=== PATIENT | female | born 1970 | race Hispanic/Latino ===

== ENCOUNTER 2019-04-01 04:44 | Observation (INO) | payer BC ==
[2019-04-01 05:36] LABS: Bilirubin Negative (Negative); Blood, Urine Negative (Negative); Clarity Clear (Clear); Glucose, Urine (Dipstick) Normal (Negative); Leukocyte Negative Leu/uL (Negative); Nitrite Negative (Negative); Protein, Urine (Dipstick) Negative (Neg-Trace); Urobilinogen Normal mg/dL (Less than 2)
[2019-04-01] MEDS ORDERED: Ondansetron PF 4 MG/2 ML Vial ONE ×2 (05:51→11:52)
[2019-04-01 06:50] LABS: Troponin I 2.405 ng/mL (< 0.028)
[2019-04-01] MEDS ORDERED: Acetaminophen 325 MG TAB PO PRN (09:11)
[2019-04-01] MEDS ORDERED: Guaifenesin DM 100-10/5 ML UDCUP PO PRN (09:11)
[2019-04-01] MEDS ORDERED: Morphine 2 MG/ML SYRINGE SLOW IVP PRN (09:11)
[2019-04-01] MEDS ORDERED: Aspirin Chewable 81 MG TAB PO SCH (09:15)
[2019-04-01] MEDS ORDERED: Enoxaparin Sodium 40 MG/0.4 ML SYRINGE SC SCH (09:15)
[2019-04-01] MEDS ORDERED: Nitroglycerin 2% Ointment 1 INCH/1 GM Packet ONE (09:50)
[2019-04-01 09:53] LABS: #Eosinphils 0.3 thou/uL (0.0-0.7); #Lymphocytes 2.2 thou/uL (1.20-3.40); #Monocytes 0.4 thou/uL (0.11-0.59); #Neutrophils 3.9 thou/uL (1.40-6.50); %Basophils 0.7 % (0.0-1.0); %Eosinophils 4.7 % (0.0-10.0); %Lymphocytes 31.8 % (21.0-51.0); %Monocytes 5.9 % (0.0-10.0); Hemoglobin 11.6 g/dL (12.0-16.0); Mean Corpuscular Hemoglobin 31.2 pg (27.0-31.0); Mean Corpuscular Volume 91.8 fL (78.0-98.0); Mean Platelet Volume 6.8 fL (7.4-10.4); Platelet Count 249 thou/uL (130-400); RBC Distribution Width 12.3 % (11.5-14.5); Red Blood Cell (RBC) Count 3.72 mill/uL (4.20-5.40); White Blood Cell (WBC) Count 6.9 thou/uL (4.8-10.8)
[2019-04-01] MEDS ORDERED: Nitroglycerin 2% Ointment 1 INCH/1 GM Packet TOP SCH (10:00)
[2019-04-01] MEDS ORDERED: Iopamidol 370 76% 100 ML VIAL ONE ×2 (10:03→10:17)
[2019-04-01] MEDS ORDERED: Enoxaparin Sodium 60 MG/0.6 ML SYRINGE SC SCH ×2 (10:15→21:00)
[2019-04-01 10:18] LABS: ALT (SGPT) 14 U/L (8-55); AST (SGOT) 20 U/L (5-34); Albumin 3.4 g/dL (3.5-5.0); Alkaline Phosphatase 66 U/L (40-110); Anion Gap 7 mmol/L (10-20); BUN (Urea Nitrogen) 7 mg/dL (7.0-18.7); Bilirubin, Total 0.2 mg/dL (0.2-1.2); Calc. Creatinine Clearance 0 mL/min (70-130); Calcium 7.8 mg/dL (7.8-10.44); Carbon Dioxide 24 mmol/L (22-29); Chloride 112 mmol/L (98-107); Estimated GFR-MDRD 81; Globulin 2.4 g/dL (2.4-3.5); Glucose 94 mg/dL (70-105); Protein, Total 5.8 g/dL (6.0-8.3); Sodium 139 mmol/L (136-145)
--- NOTE | 2019-04-01 11:36 | CON ---
DATE OF CONSULTATION: 04/01/2019 REASON FOR CONSULTATION: Non-STEMI. HISTORY OF PRESENT ILLNESS: Ms. Hsieh is a pleasant 48-year-old female, who comes to the hospital for chest pain. She started having chest pain at midnight yesterday. It did not go away. So she presented to the ER at about 4:00 a.m. She was evaluated and found to have elevated troponins. Cardiology has been consulted for this. On my evaluation, Mrs. Hsieh continues to have chest pain. She states last night it was about 10/10, currently it is more about 4 to 5 out of 10. She denies any shortness of breath. No syncope or presyncope. PAST MEDICAL HISTORY: Bipolar disorder. PAST SURGICAL HISTORY: 1. Cholecystectomy. 2. Hysterectomy. SOCIAL HISTORY: Drinks socially once a month. No drug use. No tobacco use. 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 ALLERGIES: 1. ANAPROX. 2. PARAFON FORTE. OUTPATIENT MEDICATIONS: 1. Lamotrigine. 2. [place] 300 mg. 3. Oxcarbazepine. 4. Celebrex. 5. Gabapentin. 6. Levothyroxine 100 mcg a day. 7. Trazodone 100 mg once a day. 8. Tylenol with Codeine. 9. Vitamin D. REVIEW OF SYSTEMS: A 12-point review of systems was done and was all negative unless stated in the history of present illness. PHYSICAL EXAMINATION: VITAL SIGNS: Temperature 97.2, pulse 86, respiratory rate 18, saturating 100% on room air, blood pressure 98/57. GENERAL: Awake, alert, oriented x3. No distress. HEENT: Normocephalic, atraumatic. NECK: Supple. LUNGS: Clear. CARDIOVASCULAR: S1 and S2. No S3 or S4. No murmurs. ABDOMEN: Soft, positive bowel sounds. EXTREMITIES: No edema. SKIN: Warm and dry. LABORATORY DATA: Laboratory work was reviewed. She has a white count of 11, hemoglobin of 34, platelet count of 249. Chemistries were unremarkable. Troponin initially at 2.4. UA was negative. EKG was reviewed. ASSESSMENT AND PLAN: 1. Non-ST elevation myocardial infarction. She has ongoing chest pain and rising troponin. We will plan on taking her to the catheterization lab emergently for further evaluation as she has ongoing chest pain. We spoke at length with risks and benefits of the procedure. Risks included, but not limited to stroke, VT, , bleeding, need for blood transfusion, limb loss, organ loss. She understands and verbalized understanding of this and agrees to proceed. 2. Drug-eluting stents if needed. Right groin access. 3. Further recommendations per results of coronary angiogram. Job ID: [id number]
[2019-04-01] MEDS ORDERED: Sodium Chloride 0.9% 200 ML IV PRN (11:53)
[2019-04-01] MEDS ORDERED: Fentanyl 100 MCG/2 ML VIAL ONE (11:58)
[2019-04-01] MEDS ORDERED: Midazolam HCl 2 mg/2 ml Vial ONE (11:58)
[2019-04-01 13:19] VITALS: BMI 31.9
[2019-04-01] MEDS ORDERED: FLU VACC QS2019-20(6MOS UP)/PF 60 MCG/0.5 ML SYRINGE IM ONE (13:45)
[2019-04-01] MEDS ORDERED: Lorazepam 2 MG/ML VIAL SLOW IVP SCH (14:45)
--- NOTE | 2019-04-01 16:11 | CT ---
EXAM: CTA of the chest HISTORY: Shortness of breath COMPARISON: None TECHNIQUE: Multiple contiguous axial images were obtained a CTA of the chest with contrast per pulmon maye embolism protocol. 3-D oblique MIP reformats and direct coronal reformats were performed. FINDINGS: HEART: Normal in size without focal cardiac abnormality. PULMONARY ARTERIES: Normal in caliber without filling defects to suggest pulmonary emboli. MEDIASTINUM: No hilar or mediastinal lymphadenopathy. LUNGS: No focal infiltrates or masses. Bilateral dependent atelectasis. PLEURAL SPACE: No pleural effusion or pneumothorax. CHEST WALL SOFT TISSUES: Unremarkable VISUALIZED OSSEOUS STRUCTURES: Unremarkable VISUALIZED SUBDIAPHRAGMATIC STRUCTURES: Unremarkable. The patient is status post cholecystectomy. IMPRESSION: No evidence of pulmonary thromboembolism
[2019-04-01] MEDS: Sodium Chloride 0.9% 1,000 ML IV SCH ×2 (17:19→23:25)
--- NOTE | 2019-04-01 18:00 | HP ---
REASON FOR ADMISSION: Non STEMI. HISTORY OF PRESENT ILLNESS: The patient gives history of waking up at 12:30 in the mid night with epigastric pain. This was radiating into retrosternal area. She initially thought it was gas and tried to vomit. She vomited 3 times. The pain got worse. She went to bed and thought it might get better. Finally, as the pain got worse with chest pain going up to 6/10 in intensity, the patient went to [facility]. From there, she was transferred here. Currently, the chest pain is 6/10 in intensity. It is in the retrosternal area still. The patient has dry cough, but no expectoration. No fever. No complaints of palpitation, PND, or orthopnea. PAST MEDICAL AND SURGICAL HISTORY: History of bipolar disorder, hypothyroidism, cervical radiculopathy on the left side and sees and for the same, cholecystectomy, and hysterectomy. CURRENT MEDICATIONS: The patient is on: 1. Lamotrigine 100 mg p.o. daily. 2. [place] 300 mg p.o. daily. 3. Celebrex 200 mg twice daily. 4. Gabapentin 100 mg twice daily. 5. Trazodone 100 mg p.o. at bedtime. ALLERGIES: ALLERGIC TO ANAPROX AND PARAFON FORTE. PERSONAL HISTORY: Does not abuse alcohol or drugs. No history of smoking. FAMILY HISTORY: Mother has had history of heart failure, diabetes, and AICD. Father has history of coronary artery disease. CODE STATUS: Full. Power of registered art therapist is her . REVIEW OF SYSTEMS: CONSTITUTIONAL: Negative for weight loss or gain, ability to conduct usual activities. SKIN: Negative for rash, itching. EYES: Negative for double vision, pain. ENT/MOUTH: Negative for nose bleeding, neck stiffness, pain, tenderness. CARDIOVASCULAR: Negative for palpitations, dyspnea on exertion, orthopnea. RESPIRATORY: Negative for shortness of breath, wheezing, cough, hemoptysis, fever or night sweats. GASTROINTESTINAL: Negative for poor appetite, abdominal pain, heartburn, nausea , vomiting, constipation, or diarrhea. GENITOURINARY: Negative for urgency, frequency, dysuria, nocturia. MUSCULOSKELETAL: Negative for pain, swelling. NEUROLOGIC/PSYCHIATRIC: Negative for anxiety, depression. ALLERGY/IMMUNOLOGIC: Negative for skin rash, bleeding tendency. PHYSICAL EXAMINATION: GENERAL: The patient is a 48-year-old female, who is currently not in any acute distress except for chest pain. VITAL SIGNS: Blood pressure 98/56, pulse 86 per minute, respiratory rate 18 per minute, saturating 100% on room air, and temperature is 98.7 degrees Fahrenheit. NECK: Supple. No elevated JVD. HEENT: Eyes, extraocular muscles intact. Pupils reacting to light. Oral cavity, mucous membranes are moist. No exudates or congestion. CARDIOVASCULAR SYSTEM: S1 and S2 heard, regular rhythm. RESPIRATORY: Air entry 1+ bilateral. No rales or rhonchi. ABDOMEN: Soft. Bowel sounds heard. No tenderness, rigidity, or guarding. EXTREMITIES: No peripheral edema or calf tenderness. VASCULAR SYSTEM: Peripheral pulses 1+ bilateral. No ischemic ulcerations or gangrene. CENTRAL NERVOUS SYSTEM: No gross focal deficits noted. The patient is alert, awake, oriented well. PSYCHIATRIC SYSTEM: The patient's mood is euthymic. No hallucinations or delusions. LABORATORY DATA: CT angio of chest done, shows no evidence of PE. Troponin I was elevated up to 2.40, CK-MB 6.0, albumin is 3.4. UA shows no evidence of infection. BUN 7, creatinine 0.7, serum bicarb 24. White count of 6.9, H and H 11 and 34, platelet count 249, and MCV is 91. EKG done shows normal sinus rhythm at 70 beats per minute. There are nonspecific ST-T wave changes noted. CLINICAL IMPRESSION AND PLAN: The patient will be under observation on telemetry for [id number] myocardial infarction with ongoing chest pain. She will be on nitroglycerin paste half-inch q.8 hourly, Lipitor 40 mg at bedtime, and aspirin 81 mg daily, and continue lamotrigine, lithium, and trazodone at home doses and also gabapentin. I have consulted Dr. Velasquez from Cardiology. The patient will be kept n.p.o. for angiogram likely. Echo with 2D Doppler for left ventricular function will also be obtained. We will continue to closely monitor her on telemetry. Job ID: [id number] [facility]
[2019-04-01] MEDS ORDERED: OXcarbazepine 300 MG TAB PO SCH (21:00)
[2019-04-01] MEDS ORDERED: Metoprolol Tartrate 25 MG TAB PO SCH (21:00)
[2019-04-01] MEDS ORDERED: traZODone HCl 50 MG TAB PO SCH (21:00)
[2019-04-01] MEDS ORDERED: Atorvastatin Calcium 40 MG TAB PO SCH (21:00)
[2019-04-01] MEDS ORDERED: Pantoprazole 40 MG VIAL IVP SCH (21:00)
[2019-04-01] MEDS: Gabapentin 100 MG CAP PO SCH (21:32)
[2019-04-02 04:32] LABS: #Basophils 0.1 thou/uL (0.0-0.2); #Eosinphils 0.5 thou/uL (0.0-0.7); #Lymphocytes 2.3 thou/uL (1.20-3.40); #Monocytes 0.4 thou/uL (0.11-0.59); #Neutrophils 3.7 thou/uL (1.40-6.50); %Basophils 0.8 % (0.0-1.0); %Lymphocytes 33.6 % (21.0-51.0); %Monocytes 5.4 % (0.0-10.0); %Neutrophils 53.3 % (42.0-75.0); Hemoglobin 11.1 g/dL (12.0-16.0); Mean Corpuscular HGB CONC 33.9 g/dL (32.0-36.0); Mean Corpuscular Hemoglobin 31.2 pg (27.0-31.0); Platelet Count 243 thou/uL (130-400); RBC Distribution Width 12.2 % (11.5-14.5); Red Blood Cell (RBC) Count 3.57 mill/uL (4.20-5.40); White Blood Cell (WBC) Count 6.9 thou/uL (4.8-10.8)
[2019-04-02] MEDS: Sodium Chloride 0.9% 1,000 ML IV SCH (04:50)
[2019-04-02 04:51] LABS: Anion Gap 7 mmol/L (10-20); BUN (Urea Nitrogen) 8 mg/dL (7.0-18.7); Calc. Creatinine Clearance 111 mL/min (70-130); Calcium 7.9 mg/dL (7.8-10.44); Carbon Dioxide 23 mmol/L (22-29); Cardiac Risk 3.6 (Less than 4.5); Chloride 110 mmol/L (98-107); Cholesterol 118 mg/dl (< 200 Desired); Estimated GFR-MDRD 87; Glucose 93 mg/dL (70-105); HDL Cholesterol 33 mg/dL (>60 Neg Risk); LDL Cholesterol, Calculated 71 mg/dL; Potassium 3.8 mmol/L (3.5-5.1); Sodium 136 mmol/L (136-145); Triglycerides 72 mg/dL (Less than 150)
[2019-04-02] MEDS ORDERED: Levothyroxine Sodium 100 MCG TAB PO SCH (06:00)
[2019-04-02] MEDS ORDERED: Lithium Carbonate 150 MG CAP PO SCH ×2 (09:00)
[2019-04-02] MEDS ORDERED: lamoTRIgine 100 MG TAB PO SCH (09:00)
[2019-04-02] MEDS: Gabapentin 100 MG CAP PO SCH (10:19)
[2019-04-02 12:02] VITALS: BP 115/58; TEMP 98.2
--- NOTE | 2019-04-02 18:48 | DIS ---
DATE OF ADMISSION: 04/01/2019 DATE OF DISCHARGE: 04/02/2019 DISCHARGE DISPOSITION: To home. PRIMARY DISCHARGE DIAGNOSIS: [id number] myocardial infarction with normal coronaries. SECONDARY DISCHARGE DIAGNOSES: Hypothyroidism, bipolar disorder, and cervical radiculopathy. PROCEDURES DONE DURING HOSPITALIZATION: The patient has had cardiac catheterization done by Dr. Velasquez, which showed normal coronaries. Normal LV ejection fraction. Normal LV end-diastolic pressure. CT angio chest done showed no evidence of PE. Echo with 2D Doppler showed ejection fraction of 60% to 65%. There was diastolic dysfunction. H and H 11 and 32, platelet count 243. Troponin I was abnormal peaking up to 2.4. Total cholesterol 118, LDL 71, HDL 33, triglycerides 72, BUN 8, and creatinine 0.7. DISCHARGE MEDICATIONS: 1. Aspirin 81 mg p.o. daily. 2. Atorvastatin 40 mg p.o. q.h.s. 3. Trazodone 100 mg p.o. q.h.s. 4. [place] 300 mg p.o. daily. 5. Levothyroxine 100 mcg p.o. daily. 6. Lamictal 200 mg p.o. daily. 7. Gabapentin 100 mg p.o. twice daily. 8. Celecoxib 100 mg twice daily. 9. Tylenol 3 p.r.n. ALLERGIES: TO CHLORZOXAZONE, NAPROSYN. INPATIENT CONSULT: Dr. Velasquez of Cardiology. DISCHARGE PLAN: The patient to follow up with her primary care physician, Dr. Calixto Oreilly, in 1 week. BRIEF COURSE DURING HOSPITALIZATION: The patient initially came in with complaints of epigastric and retrosternal chest pain. This woke her up in the middle of the night. She had abnormal troponin going up to 2.5. The patient was kept n.p.o. and has had Cardiology consultation. She was essentially placed under observation for [id number] OK. Her coronary angiogram revealed clean coronaries. Her chest pain completely got resolved after placing her on nitroglycerin paste 1/2 inch. She has had multiple workups including echo with 2D Doppler and CT angio chest, all of which have been within normal limits. She is ambulating and eating well prior to discharge. Please note, the patient's systolic blood pressure runs from 100 to 110 and was not placed on any beta blockers or PAGE inhibitors. The LDL is fairly normal around 71. The patient's BMI is 32, and with initial presentation, she will be placed on aspirin and Lipitor for 30 days and be re-evaluated by her primary care physician if needed. She needs to continue all her home medications as before. She is cleared for discharge by Dr. Velasquez. I have seen and examined the patient on the day of discharge. Job ID: [id number]
== END 2019-04-02 13:56 | disposition home or self-care (01) ==
LOC: ERS 04:44 → ERHOLD 06:23 → 2SW 13:03
PROVIDERS: ADMIT Hospitalist; ATTEND Hospitalist
PROC: 4A023N7 Measurement of Cardiac Sampling and Pressure, Left Heart, Percutaneous Approach (ICD-10-PCS; principal; 2019-04-01)
DX: I21.4 Non-ST elevation (NSTEMI) myocardial infarction (principal); E03.9 Hypothyroidism, unspecified; M54.12 Radiculopathy, cervical region; F31.9 Bipolar disorder, unspecified; Z79.82 Long term (current) use of aspirin; Z79.899 Other long term (current) drug therapy; Z88.8 Allergy status to other drugs, medicaments and biological substances
CPT/HCPCS: 36415; 71275; 80048; 80061; 85025; 87086; 93005; 93306; 93458; 96361; 96374; 96375; 99152; C1769; G0378; J2060; J2250; J2405; J3010; Q9967

== ENCOUNTER 2020-09-22 14:15 | Outpatient (CLI) | payer BC | END 2020-09-22 14:16 | disposition home or self-care (01) | LOC: SCSMRI 14:15 | PROVIDERS: ATTEND Anesthesiology | DX: M47.26 Other spondylosis with radiculopathy, lumbar region (principal) | CPT/HCPCS: 72148 ==

== ENCOUNTER 2021-08-24 08:49 | Outpatient (CLI) | payer BC ==
[2021-08-24 20:20] LABS: SARS-CoV-2 PCR by NAA Not Detected (NotDetected)
== END 2021-08-24 08:50 | disposition home or self-care (01) ==
LOC: LABBT 08:49
PROVIDERS: ATTEND Neurological Surgery
DX: M54.16 Radiculopathy, lumbar region (principal); Z20.822 Contact with and (suspected) exposure to COVID-19
CPT/HCPCS: U0003; U0005

== ENCOUNTER 2021-08-29 06:38 | Day surgery (SDC) | payer BC ==
[2021-08-24 09:49] VITALS: BMI 32.8
[2021-08-29] MEDS ORDERED: Neomycin-Polymyxin 1 ML AMP ONE (06:51)
[2021-08-29] MEDS ORDERED: Bupivacaine 0.25% HCL 30 ML VIAL ONE (06:51)
[2021-08-29] MEDS ORDERED: EPINEPHrine 1 MG/ML AMP ONE (06:51)
[2021-08-29] MEDS ORDERED: Thrombin 5000 UNITS/5 ML VIAL ONE (06:51)
[2021-08-29] MEDS ORDERED: Fentanyl 250 MCG/5 ML VIAL ONE ×2 (07:01→09:23)
[2021-08-29] MEDS ORDERED: ceFAZolin (BATCH) 2 GM/100 ML BAG ONE (07:13)
[2021-08-29] MEDS ORDERED: Midazolam HCl 2 mg/2 ml Vial ONE (07:14)
[2021-08-29] MEDS ORDERED: Lidocaine 2% Jelly 5 ML TUBE ONE (07:33)
[2021-08-29] MEDS ORDERED: Ketorolac Tromethamine 30 MG/ML VIAL ONE (07:46)
[2021-08-29] MEDS ORDERED: PROPOFOL 200 MG/20 ML VIAL ONE (07:46)
[2021-08-29] MEDS ORDERED: Ondansetron PF 4 MG/2 ML Vial ONE (07:46)
[2021-08-29] MEDS ORDERED: Lidocaine 1% PF 5 ML VIAL ONE (07:46)
[2021-08-29] MEDS ORDERED: Rocuronium Bromide 10 MG/ML (10ML VIAL) ONE (07:46)
[2021-08-29] MEDS ORDERED: Glycopyrrolate 0.2 MG/ML 5 ML SYRINGE ONE (07:46)
[2021-08-29] MEDS ORDERED: Dexamethasone 20 MG/5 ML VIAL ONE (07:46)
[2021-08-29] MEDS ORDERED: SUGAMMADEX SODIUM 200 MG/2 ML VIAL ONE (08:34)
[2021-08-29] MEDS ORDERED: Acetaminophen/Codeine 30-300mg Tablet ONE (10:42)
== END 2021-08-29 11:25 | disposition home or self-care (01) ==
LOC: SDC 06:38
PROVIDERS: ATTEND Neurological Surgery
PROC: 01NB0ZZ Release Lumbar Nerve, Open Approach (ICD-10-PCS; principal; 2021-08-29)
DX: M54.16 Radiculopathy, lumbar region (principal); M19.90 Unspecified osteoarthritis, unspecified site; Z79.899 Other long term (current) drug therapy; Z88.6 Allergy status to analgesic agent; Z88.8 Allergy status to other drugs, medicaments and biological substances
CPT/HCPCS: 76000; J0171; J0690; J1100; J1885; J2250; J2405; J2704; J3010; S0020